=== PATIENT | male | born 1975 | race Two or more races ===

== ENCOUNTER 2019-02-09 17:20 | Emergency (ER) | payer SELFPAY ==
[~2019-02-09] VITALS: Ht 167.6 cm; Wt 77.6 kg
[~2019-02-09 17:20] MED LIST: IBUPROFEN600 MG ORAL; NKM
--- NOTE | 2019-02-09 17:42 | NUR ---
ED Nurse Note: AMBULATED IN TO ER DUE TO DIZINESS AND HEADACHE X FIVE DAYS. ORAL TEMP OF 100F. patient rates his pain a 8/10 pain. patient is alert and oriented x4, ambulatory with a steady gait, VSS. patient reports no vision loss. reports of frontal headache
[2019-02-09] MEDS ORDERED: CARBAMAZEPINE200 M1 ORAL (17:44)
[2019-02-09 17:45] VITALS: BP 132/75
--- NOTE | 2019-02-09 17:52 | Emergency Room Report ---
History of Present Illness General Chief Complaint: Headache Source: Patient Present Illness HPI 43-year-old male with no significant past medical history here complaining of 5 days of 10 out of 10 sore throat,, headache and dizziness. Patient denies congestion, rhinorrhea, cough, shortness of breath, chest pain. Patient has been taking [id number] medication without any relief. Denies recent sick contacts or travel, denies smoking, abdominal pain, nausea vomiting. Denies fever and chills were appears to have a fever of 100 F at the emergency room today as neck stiffness, photophobia Allergies: Coded Allergies: No Known Allergies (Unverified , 02/26/16) Patient History Past Medical History: see triage record Past Surgical History: none Pertinent Family History: unable to obtain Immunizations: UTD Reviewed Nursing Documentation: PMH: Agreed; PSxH: Agreed Nursing Documentation-PMH Past Medical History: No History, Except For Hx Seizures: Yes Review of Systems All Other Systems: negative except mentioned in HPI Physical Exam Vital Signs Date Time Temp Pulse Resp B/P (MAP) Pulse Ox O2 Delivery O2 Flow Rate FiO2 02/09/19 17:40 100.0 99 16 127/79 (95) 96 Room Air Sp02 EP Interpretation: reviewed, normal General Appearance: normal inspection, well appearing, no apparent distress Head: normocephalic, atraumatic Eyes: bilateral eye normal inspection, bilateral eye PERRL ENT: hearing grossly normal, no angioedema, TMs + canals normal, tonsillar exudate Neck: full range of motion, supple, other - ant cervical lymphadenopathy Respiratory: normal inspection, chest non-tender, lungs clear, normal breath sounds, no rhonchi, no wheezing Cardiovascular #1: normal inspection, normal peripheral pulses, regular rate, rhythm, no edema, no murmur Gastrointestinal: normal inspection, soft Genitourinary: no CVA tenderness Musculoskeletal: normal inspection, back normal Neurologic: normal inspection, alert, oriented x3 Psychiatric: normal inspection, judgement/insight normal Skin: normal inspection, normal color, no rash, warm/dry Lymphatic: adenopathy - ant cervical Medical Decision Making PA Attestation All diagnosis and treatment plans were reviewed and discussed with my supervising physician Diagnostic Impression: Primary Impression: Strep pharyngitis ER Course 43-year-old male with no significant past medical history here complaining of 5 days of 10 out of 10 sore throat,, headache and dizziness. Patient denies congestion, rhinorrhea, cough, shortness of breath, chest pain. Patient has been taking [id number] medication without any relief. Denies recent sick contacts or travel, denies smoking, abdominal pain, nausea vomiting. Denies fever and chills were appears to have a fever of 100 F at the emergency room today as neck stiffness, photophobia Ddx considered but are not limited to strep pharyngitis, sinusitis, meningitis, Vital signs: are WNL, pt. is afebrile H&PE are most consistent with strep pharyngitis ORDERS: Amoxicillin, ibuprofen ED INTERVENTIONS: None required at this time. DISCHARGE: At this time pt. is stable for d/c to home. Will provide printed patient care instructions, and any necessary prescriptions. Care plan and follow up instructions have been discussed with the patient prior to discharge. Aloe up with a primary care provider if symptoms worsen, no stiffness of neck no photophobia noted patient is able to have full range of motion of neck no signs of meningitis noted Last Vital Signs Date Time Temp Pulse Resp B/P (MAP) Pulse Ox O2 Delivery O2 Flow Rate FiO2 02/09/19 17:40 100.0 99 16 127/79 (95) 96 Room Air Disposition: HOME, SELF-CARE Condition: Stable Scripts Ibuprofen* (MOTRIN*) 600 Mg Tablet 600 MG ORAL Q8H PRN for For Pain, #30 TAB 0 Refills Prov: Angel Botello 02/09/19 Amoxicillin* (AMOXIL*) 500 Mg Capsule 500 MG ORAL EVERY 12 HOURS for 10 Days, #20 CAP Prov: Angel Botello 02/09/19 Patient Instructions: Sinus Headache, Strep Throat, [id number] Additional Instructions: follow up with primary care provider for follow-up, if sensitivity to light, increased temperature, neck stiffness return to the emergency room Angel Botello Feb 09, 2019 17:52
[2019-02-09] MEDS ORDERED: IBUPROFEN600 MG ORAL (17:54)
[2019-02-09] MEDS ORDERED: AMOXICILLIN500 MG ORAL (17:54)
[2019-02-09 18:15] VITALS: BP 125/72
--- NOTE | 2019-02-09 18:15 | NUR ---
ER DISCHARGE NOTE: Patient is cleared to be discharged per ERMD, pt is aox4, on room air, with stable vital signs. pt was given dc and prescription instructions, pt was able to verbalize understanding, pt id band removed without complications. pt is able to ambulate with steady gait. pt took all belongings.
== END 2019-02-09 18:20 | disposition home or self-care (01) ==
LOC: EMR 18:16
DX: J02.0 Streptococcal pharyngitis (principal); G40.909 Epilepsy, unspecified, not intractable, without status epilepticus
CPT/HCPCS: 99282